=== PATIENT | male | born 1995 | race Caucasian/White ===

== ENCOUNTER 2018-08-10 23:39 | Emergency (ER) | payer SELFPAY ==
[~2018-08-10] VITALS: Ht 190.5 cm; Wt 61.2 kg
--- NOTE | 2018-08-10 23:50 | NUR ---
Patient to ER bed 7 to gown for evaluation. Side rails up. Report given to Ulises BOSTON.
[2018-08-10 23:55] VITALS: BP_SYST 124
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
--- NOTE | 2018-08-11 00:09 | NUR ---
ED MD Posey at bedside for medical evaluation.
[2018-08-11 00:48] VITALS: BP_SYST 121
--- NOTE | 2018-08-11 00:48 | NUR ---
Patient given written and verbal discharge instructions and verbalizes understanding. ER MD discussed with patient the results and treatment provided. Patient in stable condition. ID arm band removed. Rx of Motrin given. Patient educated on pain management and to follow up with PMD. Pain Scale 2/10 tolerable for patient. Opportunity for questions provided and answered. Medication side effect fact sheet provided.
== END 2018-08-11 00:48 | disposition home or self-care (01) ==
LOC: SED 23:39
DX: S93.401A Sprain of unspecified ligament of right ankle, initial encounter (principal); R03.0 Elevated blood-pressure reading, without diagnosis of hypertension; V18.0XXA Pedal cycle driver injured in noncollision transport accident in nontraffic accident, initial encounter; Y93.89 Activity, other specified; Y92.410 Unspecified street and highway as the place of occurrence of the external cause; Y99.8 Other external cause status
CPT/HCPCS: 99284

== ENCOUNTER 2018-08-16 15:06 | Emergency (ER) | payer SELFPAY ==
[~2018-08-16] VITALS: Ht 190.5 cm; Wt 65.8 kg
[2018-08-16 15:40] VITALS: BP_SYST 130
--- NOTE | 2018-08-16 17:19 | NUR ---
Patient to ER bed 08 to gown for evaluation. Side rails up. Report given to DARVIN Lin
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
--- NOTE | 2018-08-16 18:02 | NUR ---
MATTHEW Lucero at bedside examining patient.
[2018-08-16 18:19] VITALS: BP_SYST 129
--- NOTE | 2018-08-16 18:19 | NUR ---
Patient given written and verbal discharge instructions and verbalizes understanding. ER MD discussed with patient the results and treatment provided. Patient in stable condition. ID arm band removed. No Rx given. Patient educated on pain management and to follow up with PMD in 2-3 days. Pain Scale 0/10 Opportunity for questions provided and answered.
== END 2018-08-16 18:19 | disposition home or self-care (01) ==
LOC: SED 15:06
DX: S93.401D Sprain of unspecified ligament of right ankle, subsequent encounter (principal); X50.9XXD Other and unspecified overexertion or strenuous movements or postures, subsequent encounter
CPT/HCPCS: 99283

== ENCOUNTER 2023-11-17 11:31 | Emergency (ER) | payer SELFPAY ==
[~2023-11-17] VITALS: Ht 190.5 cm; Wt 81.6 kg
[2023-11-17 11:35] VITALS: BP_SYST 117; PULSE 66; RESP 18; TEMP 98.3; O2SAT 96
== END 2023-11-17 15:51 | disposition left against medical advice (07) ==
LOC: SED 11:31
DX: S61.216A Laceration without foreign body of right little finger without damage to nail, initial encounter (principal); Z79.899 Other long term (current) drug therapy; X58.XXXA Exposure to other specified factors, initial encounter; Y93.89 Activity, other specified; Y92.89 Other specified places as the place of occurrence of the external cause; Y99.8 Other external cause status
CPT/HCPCS: 99281